=== PATIENT | male | born 1950 | race Caucasian/White ===

== ENCOUNTER 2017-05-09 17:04 | Emergency (ER) | payer SELFPAY ==
[~2017-05-09] VITALS: Ht 175.3 cm; Wt 84.0 kg
[2017-05-09 19:08] LABS: CLARITY URINE CLEAR (CLEAR); COLOR URINE YELLOW (YELLOW); GLUCOSE URINE NEGATIVE (NEGATIVE); KETONES URINE NEGATIVE (NEGATIVE); LEUKOCYTE ESTERASE URINE NEGATIVE (NEGATIVE); NITRITE URINE NEGATIVE (NEGATIVE); OCCULT BLOOD URINE 1+ (NEGATIVE); PH URINE 5.5 (4.5-8.0); PROTEIN URINE NEGATIVE (NEGATIVE); SPECIFIC GRAVITY URINE 1.011 (1.005-1.030); UROBILINOGEN URINE 0.2 E.U./dL (0.2-1.0)
[2017-05-09 19:14] VITALS: BP 121/44
== END 2017-05-09 20:00 | disposition home or self-care (01) ==
LOC: ER 17:04
DX: R33.9 Retention of urine, unspecified (principal); F17.200 Nicotine dependence, unspecified, uncomplicated
CPT/HCPCS: 51702; 81001; 87086; 99284; Z7610; A4315

== ENCOUNTER 2018-05-13 18:58 | Emergency (ER) | payer SELFPAY ==
[~2018-05-13] VITALS: Ht 170.2 cm; Wt 78.0 kg
[2018-05-13 19:59] VITALS: BP 125/81
== END 2018-05-14 03:16 | disposition left against medical advice (07) ==
LOC: ER 18:58
DX: Z53.21 Procedure and treatment not carried out due to patient leaving prior to being seen by health care provider (principal); F17.200 Nicotine dependence, unspecified, uncomplicated